=== PATIENT | female | born 1955 | race Caucasian/White ===

== ENCOUNTER 2021-01-09 08:08 | Outpatient (CLI) | payer MEDICARE, SELFPAY ==
--- NOTE | ~2021-01-09 | MM_ITS ---
EXAMINATION: MM screening [facility] HISTORY: Screening mammogram TECHNIQUE: Craniocaudal and mediolateral oblique 3-D tomosynthesis images were obtained and synthetic 2-D images were generated. CAD analysis was submitted and interpreted. COMPARISON: 04/10/2019, 04/08/2018, 04/02/2017 bilateral digital screening mammogram examinations BREAST PARENCHYMAL COMPOSITION: There are scattered areas of fibroglandular density. FINDINGS: There is no evidence of suspicious mass, calcification, or architectural distortion to sugg est malignancy in either breast. There has been no suspicious interval change. IMPRESSION: 1. No mammographic evidence of malignancy. 2. Recommend routine screening mammography in one year. BI-RADS Category 1: Negative Reviewed, dictated and finalized at location A. [employer] J[employer] GRINDER
== END 2021-01-09 08:09 | disposition home or self-care (01) ==
LOC: ANHIMG 08:13
PROVIDERS: Family Provider Internal Medicine; PCP Internal Medicine; Visit Provider Internal Medicine
DX: Z12.31 Encounter for screening mammogram for malignant neoplasm of breast (principal)
CPT/HCPCS: 77063; 77067

== ENCOUNTER 2021-01-31 16:32 | Outpatient (CLI) | payer MEDICARE, SELFPAY | END 2021-01-31 16:33 | disposition home or self-care (01) | LOC: ANHCOVIDVC 16:32 | PROVIDERS: PCP Internal Medicine | DX: Z23 Encounter for immunization (principal) | CPT/HCPCS: 0001A; 91300 ==

== ENCOUNTER 2021-02-21 16:13 | Outpatient (CLI) | payer MEDICARE, SELFPAY | END 2021-02-21 16:14 | disposition home or self-care (01) | LOC: ANHCOVIDVC 16:13 | PROVIDERS: PCP Internal Medicine | DX: Z23 Encounter for immunization (principal) | CPT/HCPCS: 0002A; 91300 ==

== ENCOUNTER 2022-02-28 07:15 | Outpatient (CLI) | payer MEDICARE, SELFPAY ==
--- NOTE | ~2022-02-28 | MM_ITS ---
EXAMINATION: MM screening [facility] BI w [facility] HISTORY: Screening TECHNIQUE: Craniocaudal and mediolateral oblique 3-D tomosynthesis images were obtained and synthetic 2-D images were generated. CAD analysis was submitted and interpreted. COMPARISON: Comparison to multiple prior studies sequentially, with oldest reviewed study dated 06/2016. BREAST PARENCHYMAL COMPOSITION: Breast composed of scattered areas of fibroglandular density FINDINGS: There is no evidence of suspicious mass, calcification, or architectural distortion to sugg est malignancy in either breast. There has been no suspicious interval change. IMPRESSION: 1. No mammographic evidence of malignancy. 2. Recommend routine screening mammography in one year. BI-RADS Category 1: Negative Reviewed, dictated and finalized at location A.
== END 2022-02-28 07:16 | disposition home or self-care (01) ==
PROVIDERS: PCP Internal Medicine; Visit Provider Advanced Practice Midwife
DX: Z12.31 Encounter for screening mammogram for malignant neoplasm of breast (principal)
CPT/HCPCS: 77063; 77067

== ENCOUNTER 2022-05-21 00:55 | Day surgery (SDC) | payer MEDICARE, SELFPAY ==
[2022-05-04 13:53] VITALS: BMI 30.5
--- NOTE | 2022-05-20 12:59 | WPDANESEPPF ---
Anes - Initial Pre Proc Eval Procedure: Operation Date: 05/21/22 07:30 Proposed Procedures p Screening Colonoscopy - Chas Orta MD Date/Time: 05/20/22 12:59 Surgeon: Chas Orta MD Pre Op Diagnosis: hx of colon polyps Patient Data Age: 67 Gender: F Height: 1.64 m Weight: 82 kg Allergies Allergy/AdvReac Type Severity Reaction Status Date / Time No Known Allergies Allergy Verified 05/21/22 06:20 Home Medications Medication Instructions Recorded Confirmed Type atorvastatin 40 mg tablet 40 mg PO DAILY 02/06/21 05/21/22 History hydrocodone 5 mg-ibuprofen 200 mg 1 tablet PO Q6H 02/06/21 05/21/22 History tablet levothyroxine 200 mcg capsule 200 mcg PO DAILY 02/06/21 05/21/22 History lisinopril 10 mg tablet 10 mg PO DAILY 02/06/21 05/21/22 History lorazepam 1 mg tablet 1 mg PO TID PRN Anxiety 02/06/21 05/21/22 History venlafaxine 150 mg 150 mg PO DAILY 02/06/21 05/21/22 History capsule,extended release 24 hr sodium sul 1.479 gram-potas ch See Rx Instructions PO PER PKG DIR 04/14/22 05/21/22 Rx 0.188 gram-magnes sul 0.225 gram #24 tabs tablet (Sutab) metformin 500 mg tablet 1 tablet PO BID 05/04/22 05/21/22 History Patient hx anesthesia problems: none Family hx anesthesia problems: none Results Review: All pre-operative results and documents have been reviewed as part of the pre-operative evaluation. [facility] Past Medical History Medical History (Updated 05/20/22 @ 15:05 by Chas Orta MD) Anxiety Chronic, continuous use of opioids Hyperlipidemia Hypertension Migraine Surgical History Surgical History (Updated 05/20/22 @ 13:02 by Dipesh Sher DO) History of cholecystectomy Social History Social History (Updated 02/06/21 @ 14:38 by Marissa Davis) Smoking packs per day: 1 Smoking cigarettes per day: 20.0 Years smoked: 40 Smoking pack-years: 40.00 Smoking status: Current every day smoker Tobacco type: cigarettes Alcohol intake: never Substance use: never Substance use type: does not use Living arrangements: with family Spiritual care concerns: No Anes - Eval Final PreProcedure Day of Procedure 05/20/22 12:59 Patient weight: obese Heart: regular rate and rhythm Lungs: clear to auscultation Airway: Mallampati scale class II Neurological: alert and oriented Last oral intake: >/= 8 hours ASA classification: III Emergent: no Anesthetic plan: proceed Anesthesia type and monitoring: general GIVS and standard monitoring Results Review: All pre-operative results and documents have been reviewed as part of the pre-operative evaluation. Informed Consent: The patient's anesthetic plan and its attendant risks and benefits were discussed with the patient/family/POA. Questions were solicited and answers provided to the satisfaction of the patient/family/POA.
--- NOTE | 2022-05-20 15:04 | PM.HPGS ---
History of Present Illness History of Present Illness Consent: Risks, benefits, and alternatives have been discussed and questions answered. Patient agrees to proceed with procedure. Chief complaint: hx of colon polyps Narrative: Sarah Bolton is a 67 year old female Who was referred for colon cancer screening. She has had polyps removed in the past. Review of Systems Review of Systems: All systems reviewed & are unremarkable except as noted in HPI and below PMFSH Past Medical History Medical History (Updated 05/20/22 @ 15:05 by Chas Orta MD) Anxiety Chronic, continuous use of opioids Hyperlipidemia Hypertension Migraine Surgical History Surgical History (Updated 05/20/22 @ 13:02 by Dipseh Sher DO) History of cholecystectomy Social History Social History (Updated 02/06/21 @ 14:38 by Marissa Davis) Smoking packs per day: 1 Smoking cigarettes per day: 20.0 Years smoked: 40 Smoking pack-years: 40.00 Smoking status: Current every day smoker Tobacco type: cigarettes Alcohol intake: never Substance use: never Substance use type: does not use Living arrangements: with family Spiritual care concerns: No Meds Home Medications and Allergies Home Medications Medication Instructions Recorded Confirmed Type atorvastatin 40 mg tablet 40 mg PO DAILY 02/06/21 05/21/22 History hydrocodone 5 mg-ibuprofen 200 mg 1 tablet PO Q6H 02/06/21 05/21/22 History tablet levothyroxine 200 mcg capsule 200 mcg PO DAILY 02/06/21 05/21/22 History lisinopril 10 mg tablet 10 mg PO DAILY 02/06/21 05/21/22 History lorazepam 1 mg tablet 1 mg PO TID PRN Anxiety 02/06/21 05/21/22 History venlafaxine 150 mg 150 mg PO DAILY 02/06/21 05/21/22 History capsule,extended release 24 hr sodium sul 1.479 gram-potas ch See Rx Instructions PO PER PKG DIR 04/14/22 05/21/22 Rx 0.188 gram-magnes sul 0.225 gram #24 tabs tablet (Sutab) metformin 500 mg tablet 1 tablet PO BID 05/04/22 05/21/22 History Allergies Allergy/AdvReac Type Severity Reaction Status Date / Time No Known Allergies Allergy Verified 05/21/22 06:20 Exam Resp: Auscultation: clear to auscultation bilaterally Cardio: Rate: regular rate Rhythm: regular rhythm GI: GI Palp: Yes Soft to palpation and No Tenderness to palpation present (GI) Assessment and Plan Assessment and plan (1) Colon cancer screening: Code(s): Z12.11 - Encounter for screening for malignant neoplasm of colon Status: Acute Assessment and Plan: Colonoscopy with possible biopsy or polypectomy or cautery or injection of substances.
[2022-05-21 06:21] VITALS: BP 117/69; PULSE 98; RESP 18; TEMP 36.8; O2SAT 98
[2022-05-21] MEDS: LACTATED RINGERS 1,000 ML 150 ML IV CONT (06:29)
[2022-05-21 06:37] LABS: Glucose Point of Care 215 mg/dl (65-105)
[2022-05-21 07:45] VITALS: BP 98/56; PULSE 78; RESP 20; O2SAT 97
[2022-05-21 07:55] VITALS: BP 104/72; PULSE 81; RESP 21; O2SAT 96
[2022-05-21 08:05] VITALS: BP 124/74; PULSE 78; RESP 22; O2SAT 95
== END 2022-05-21 08:14 | disposition home or self-care (01) ==
PROVIDERS: PCP Internal Medicine; Visit Provider Internal Medicine Gastroenterology
PROC: 0DJD8ZZ Inspection of Lower Intestinal Tract, Via Natural or Artificial Opening Endoscopic (ICD-10-PCS; CPT 45378; principal; 2022-05-21 07:30)
DX: Z12.11 Encounter for screening for malignant neoplasm of colon (principal); K62.1 Rectal polyp; K57.30 Diverticulosis of large intestine without perforation or abscess without bleeding; F41.9 Anxiety disorder, unspecified; E78.5 Hyperlipidemia, unspecified; I10 Essential (primary) hypertension; Z90.49 Acquired absence of other specified parts of digestive tract; F17.210 Nicotine dependence, cigarettes, uncomplicated; E03.9 Hypothyroidism, unspecified; Z79.84 Long term (current) use of oral hypoglycemic drugs
CPT/HCPCS: 45380; 82948; 88305; J2704; J7120

== ENCOUNTER 2022-12-17 08:36 | Outpatient (CLI) | payer MEDICARE, SELFPAY ==
--- NOTE | ~2022-12-17 | PE_ITS ---
EXAMINATION: PET skull to mid thigh DATE: 12/17/2022 10:54 INDICATION: Multiple lung nodules. TECHNIQUE: Blood glucose level was 135 mg/dL. 10.223 mCi of 18-fluorodeoxyglucose (18-FDG) was admini stered i.v. Low dose computed tomography (CT) images were acquired from the base of the brain to the proximal thighs for attenuation correction and anatomic localization. Automated exposure control was employed. Dose-length product (DLP) was 756 mGy-cm. Positron emission tomography (PET) images were ac quired in the same distribution. COMPARISON: None FINDINGS: Head/neck: There is increased activity in the oral cavity, pharynx, and glottis without abnormal CT c orrelate, likely physiologic. There are no pathologically enlarged lymph nodes. Chest: There are patchy groundglass opacities in all lobes, worst in the upper lobes. 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 There is an 8 mm nodule in left lower lobe without increased activity. There are a few ot her lung nodules measuring up to 5 mm in left upper lobe without increased activity. No pleural effus ion. The heart size is normal. There are coronary artery calcifications. No pericardial effusion. The re is a 13 x 15 mm right paratracheal lymph node without increased activity, likely reactive. Abdomen/pelvis/proximal thighs: The liver and spleen are normal. There are changes of cholecystectomy . The pancreas, adrenal glands, and kidneys are normal. There is diverticulosis of the colon without evidence of diverticulitis. There are no dilated loops of bowel. The appendix is normal. There is sev ere lower lumbar spondylosis. IMPRESSION: 1. Pulmonary nodules measuring up to 8 mm without increased activity, probably benign. Noncontrast lo w-dose chest CT is recommended in 3-6 months. Reviewed, dictated and finalized at location A. [facility] SP[employer]ER IMPRESSION: 1. Pulmonary nodules measuring up to 8 mm without increased activity, probably benign. Noncontrast low-dose chest CT is recommended in 3-6 months.
[2022-12-17 09:22] LABS: Glucose Point of Care 135 mg/dl (65-105)
== END 2022-12-17 08:37 | disposition home or self-care (01) ==
PROVIDERS: PCP Internal Medicine; Visit Provider Internal Medicine Pulmonary Disease
DX: R91.8 Other nonspecific abnormal finding of lung field (principal)
CPT/HCPCS: 78815; A9552